=== PATIENT | female | born 1945 | race Hispanic/Latino ===

== ENCOUNTER 2017-10-19 09:29 | Outpatient (CLI) | payer MEDICARE ==
--- NOTE | 2017-10-19 17:56 | XRay Report ---
FINAL REPORT EXAM: XR KNEE 4+V RT HISTORY: RIGHT KNEE PAIN TECHNIQUE: Three views of the right knee PRIORS: None. FINDINGS: There is tricompartmental joint space narrowing. No acute fracture or dislocation identified. No evidence for joint effusion. 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
== END 2017-10-19 09:30 | disposition home or self-care (01) ==
LOC: SPVIMAG 09:29
PROVIDERS: ATTEND Orthopaedic Surgery Sports Medicine
DX: M17.11 Unilateral primary osteoarthritis, right knee (principal)